=== PATIENT | female | born 1955 | race Caucasian/White ===

== ENCOUNTER 2022-06-26 08:51 | Emergency (ER) | payer MEDICARE ==
[~2022-06-26] VITALS: Ht 180.3 cm; Wt 93.9 kg
[~2022-06-26 08:51] MED LIST: ASPIRIN EC81 MG PO; BUSPIRONE HCL5 MG PO; CELEXA20 MG PO; KLONOPIN0.5 MG PO; LISINOPRIL10 MG PO; PROTONIX20 MG PO; TRAZODONE HCL300 MG PO; XANAX0.5 MG PO
== END 2022-06-26 09:58 | disposition home or self-care (01) ==
LOC: FSED 09:11
DX: D64.9 Anemia, unspecified (principal); D75.839 Thrombocytosis, unspecified; I10 Essential (primary) hypertension; K21.9 Gastro-esophageal reflux disease without esophagitis; F41.9 Anxiety disorder, unspecified; F32.A Depression, unspecified
CPT/HCPCS: 80053; 81003; 85025; 99283

== ENCOUNTER 2022-12-21 16:02 | Emergency (ER) | payer MEDICARE, OTHER ==
[~2022-12-21] VITALS: Ht 180.3 cm; Wt 87.1 kg
[2022-12-21] MEDS ORDERED: SODIUM CHLORIDE 0.9% 1000ML 1,000 ML IV STA (16:22)
[2022-12-21] MEDS ORDERED: KETOROLAC TROMETHAMINE 30 MG/ML VIAL IV STA (16:22)
[2022-12-21] MEDS ORDERED: SODIUM CHLORIDE 0.9% 1000ML 1,000 ML ONE (16:56)
[2022-12-21] MEDS ORDERED: KETOROLAC TROMETHAMINE 30 MG/ML VIAL ONE (16:56)
[2022-12-21] MEDS ORDERED: IOPAMIDOL 370 MG/ML 100 ML INFUS..BTL INJ ONE (17:26)
== END 2022-12-21 18:26 | disposition home or self-care (01) ==
LOC: FSED 16:19
DX: R10.31 Right lower quadrant pain (principal); I10 Essential (primary) hypertension; K21.9 Gastro-esophageal reflux disease without esophagitis; F32.A Depression, unspecified; Z90.49 Acquired absence of other specified parts of digestive tract; Z90.710 Acquired absence of both cervix and uterus
CPT/HCPCS: 74177; 80053; 80076; 96374; 99284; J1885; J7030; Q9967